=== PATIENT | male | born 1950 | race Caucasian/White ===

== ENCOUNTER 2020-10-22 17:49 | Inpatient (IN) | payer OTHER, MEDICAID, SELFPAY ==
[~2020-10-22] VITALS: Ht 177.8 cm; Wt 77.1 kg
[2020-10-22 17:49] VITALS: BP 100/24
[2020-10-22 19:06] LABS: BASOPHILS % (AUTO) 0.1 % (0.0-2.0); EOSINOPHILS % (AUTO) 0.1 % (0.0-4.0); HEMATOCRIT 30.6 % (36-52); LYMPHOCYTES # (AUTO) 0.3 K/uL (2.0-11.5); LYMPHOCYTES % (AUTO) 3.3 % (20.5-51.1); MEAN CORPUSCULAR HEMOGLOBIN 29 pg (27-31); MEAN CORPUSCULAR HGB CONC 33 g/dL (33-37); MEAN CORPUSCULAR VOLUME 90.1 fL (80-94); MONOCYTES # (AUTO) 0.3 K/uL (0.8-1.0); MONOCYTES % (AUTO) 2.8 % (1.7-9.3); NEUTROPHILS # (AUTO) 9.3 K/uL (1.8-7.7); NEUTROPHILS % (AUTO) 93.7 % (42.2-75.2); PLATELET COUNT (AUTO) 134 K/uL (140-450); RED CELL DISTRIBUTION WIDTH 15.8 % (11.6-13.7)
--- NOTE | 2020-10-22 19:16 | NUR ---
REPORT RECEIVED FROM MARY LAUREANO FOR CONTINUATION OF CARE.
[2020-10-22 19:30] LABS: FIBRINOGEN 339 mg/dL (200-400); PROTHROMBIN TIME 10.4 secs (10.8-13.4)
--- NOTE | 2020-10-22 19:30 | NUR ---
70 y/o male BIBA from Dialysis to ED c/o ALOC. Per daughter, pt became altered during dialysis but continued to finish dialysis anyways. Pt received x 2 hours of dialysis. Per EMS , pt was found Altered w/ oxygen levels in 80s. Pt placed on NRS 15LPM & IV established to Left Upper Chest. Pt A/O x 0 , unable to follow commands, GCS 11. RR Even and mildly labored. Lung sounds BL diminished. Dialysis shunt noted on left extremity. Pt resting in bed, locked and in lowest position, HOB elevated, side rail x 2 for pt safety. VSS. HX ESRD, DIALYSIS, HTN, RIGHT AKA , legally blind NKA
[2020-10-22 19:32] LABS: ALBUMIN 1.8 g/dL (3.4-5.0); ASPARTATE AMINOTRANSFERASE 39 U/L (15-37); CARBON DIOXIDE 33.9 mmol/L (21-32); CHLORIDE 95 mmol/L (98-107); CREATININE 3.4 mg/dL (0.6-1.3); GLUCOSE 147 mg/dL (74-106); SODIUM SERUM 136 mmol/L (136-145); TOTAL BILIRUBIN 1.8 mg/dL (0.0-1.0); UREA NITROGEN, BLOOD 31 mg/dL (7-18)
[2020-10-22 19:37] LABS: D-DIMER > 5000 ng/ml (0-400)
[2020-10-22 19:44] LABS: POTASSIUM 2.9 mmol/L (3.5-5.1)
--- NOTE | 2020-10-22 19:45 | NUR ---
Pt oxygen level 87% on Room Air, pt placed on 4L NC. ERMD made aware.
--- NOTE | 2020-10-22 19:45 | NUR ---
JUAN RAMON COVID , NOVEL COVID & FLU SWAB COLLECTED AND WALKED TO LAB.
--- NOTE | 2020-10-22 19:56 | NUR ---
PER DR. FLORES, STEPHANY TO TRY STRAIGHT CATH ON PT. # 14 FR Urinary catheter inserted utilizing sterile technique. Immediate return of 0.05 ml YELLOW urine noted. Urine sample collected and sent to lab. Pt tolerated procedure WELL. RADHA FLORES MADE AWARE THAT THERE WAS NOT ENOUGH URINE TO SEND FOR LAB SPECIMEN.
--- NOTE | 2020-10-22 20:05 | NUR ---
UPON ENTERING PT ROOM, OBSERVED EMESIS ON GROUND AND AUBILE GURGLING SOUNDS FROM PT. PT WAS IMMEDIATELY SUCTIONS, 100 CC RED LIQUID SUCTIONED FROM PT. RADHA FLORES MADE AWARE.
--- NOTE | 2020-10-22 20:06 | NUR ---
RADHA FLORES AT BEDSIDE FOR MEDICAL EVALUATION.
[2020-10-22 20:24] LABS: LACTATE DEHYDROGENASE 313 U/L (85-227)
[2020-10-22] MEDS ORDERED: DEXAMETHASONE 10 MG/ML VIAL IVP ONE (20:25)
[2020-10-22] MEDS ORDERED: AZITHROMYCIN 500 MG in DEXTROSE 5% 250 ML IV ONE (20:25)
[2020-10-22] MEDS ORDERED: ONDANSETRON 4 MG/2 ML VIAL IVP ONE (20:30)
[2020-10-22] MEDS ORDERED: KCL 20 MEQ/WATER INJ PREMIX 100 ML IV ONE (20:30)
[2020-10-22] MEDS ORDERED: cefTRIAXone 1,000 MG VIAL ONE (20:32)
[2020-10-22] MEDS ORDERED: AZITHROMYCIN 500 MG INJ VIAL IV ONE (20:32)
[2020-10-22 20:38] LABS: C-REACTIVE PROTEIN QUANT 33.9 mg/dL (0.0-0.9)
--- NOTE | 2020-10-22 22:30 | NUR ---
PT RESTING IN BED, LOCKED AND IN LOWEST POSITION ,HOB ELEVATED , SIDE RAIL X2. VSS. NO ACUTE DISTRESS.
[2020-10-22] MEDS ORDERED: MORPHINE SULFATE 2 MG/ML SYR IVP PRN (23:20)
[2020-10-22] MEDS ORDERED: ACETAMINOPHEN 325 MG TAB PO PRN (23:20)
[2020-10-22] MEDS ORDERED: HYDROcodone/APAP 5/325 MG 1 TAB TAB PO PRN (23:20)
[2020-10-22] MEDS ORDERED: LORazepam 2 MG/ML VIAL IVP PRN (23:20)
--- NOTE | 2020-10-23 | NUR ---
PT COUGHING UP SPUTUM, SUCTION PT FOR COMFORT. PT TOLERATED WELL. VSS. SAO2 94%.
--- NOTE | 2020-10-23 00:55 | NUR ---
PT RESTING IN BED, LOCKED AND IN LOWEST POSITION ,HOB ELEVATED, SIDE RAIL X2 . VSS. NO ACUTE DISTRESS. VISIBLE RISE AND FALL OF CHEST.
--- NOTE | 2020-10-23 04:15 | NUR ---
PT EYES CLOSED, VISIBLE RISE AND FALL OF CHEST. RR EVEN AND UNLABORED. VSS . NO ACUTE DISTRESS NOTED.
[2020-10-23] MEDS ORDERED: D50SYR IV (06:14)
[2020-10-23] MEDS ORDERED: PIOG15TA24 PO (06:14)
[2020-10-23] MEDS ORDERED: ACET-2619 PO (06:14)
[2020-10-23] MEDS ORDERED: MEGE40TA17 PO (06:14)
[2020-10-23] MEDS ORDERED: SEN30 PO (06:14)
[2020-10-23] MEDS ORDERED: CLON-527 TD (06:14)
[2020-10-23] MEDS ORDERED: CALC500C17 PO (06:14)
[2020-10-23] MEDS ORDERED: LORA10TA19 PO (06:14)
--- NOTE | 2020-10-23 06:42 | NUR ---
PT LAYING IN BED, LOCKED AND IN LOWEST POSITION, HOB ELEVATED, SIDE RAIL X 2 FOR PT SAFETY. SAO2 97% 4L NC. VSS. NO ACUTE DISTRESS.
--- NOTE | 2020-10-23 07:27 | NUR ---
Report provided to MARY Duncan for transfer of care.
--- NOTE | 2020-10-23 07:30 | NUR ---
RECIEVED REPORT FROM MARY ALVAREZ, TRANSFER OF CARE AT THIS TIME.
--- NOTE | 2020-10-23 08:00 | NUR ---
PT REFUSING BREAKFAST TRAY DUE TO NAUSEA. PRN ZOFRAN ADMIN. BED LOCKED AND IN LOWEST POSITION. SIDE RAILS X2. PSYCHOLOGISTS IN PLACE. CALL LIGHT IN REACH, ALL PT NEEDS MET AT THIS TIME.
[2020-10-23] MEDS: DEXAMETHASONE 4 MG/ML VIAL IVP SCH (09:00)
[2020-10-23] MEDS ORDERED: ENOXAPARIN 30 MG/0.3 ML SYR SUBQ SCH (09:00)
[2020-10-23] MEDS: ASPIRIN 81 MG TAB.CHEW PO SCH (09:20)
--- NOTE | 2020-10-23 09:30 | NUR ---
changed pts diaper, placed pt in pt gown, linens changed. bilingual trainer/pulse ox in place. bed locked and in lowest position. side rails x2.
--- NOTE | 2020-10-23 10:01 | NUR ---
PATIENT HAS BEEN SCREENED AND CATEGORIZED MODERATE NUTRITION RISK. PATIENT WILL BE SEEN WITHIN 3-5 DAYS OF ADMISSION. 10/25/20 10/27/[address]
[2020-10-23 10:17] LABS: BASOPHILS % (AUTO) 0.2 % (0.0-2.0); HEMATOCRIT 30.7 % (36-52); LYMPHOCYTES # (AUTO) 0.2 K/uL (2.0-11.5); LYMPHOCYTES % (AUTO) 2.1 % (20.5-51.1); MEAN CORPUSCULAR HEMOGLOBIN 30 pg (27-31); MEAN CORPUSCULAR HGB CONC 33 g/dL (33-37); MEAN CORPUSCULAR VOLUME 90.8 fL (80-94); MONOCYTES # (AUTO) 0.3 K/uL (0.8-1.0); MONOCYTES % (AUTO) 2.4 % (1.7-9.3); NEUTROPHILS # (AUTO) 10.1 K/uL (1.8-7.7); NEUTROPHILS % (AUTO) 95.3 % (42.2-75.2); PLATELET COUNT (AUTO) 127 K/uL (140-450); RED BLOOD CELL COUNT(AUTO) 3.39 MIL/uL (4.20-6.10); RED CELL DISTRIBUTION WIDTH 16.2 % (11.6-13.7)
[2020-10-23 10:21] LABS: WHITE BLOOD COUNT (AUTO) 10.6 K/uL (4.8-10.8)
[2020-10-23 10:34] LABS: ALBUMIN 1.8 g/dL (3.4-5.0); ANION GAP 15.6 (8-16); ASPARTATE AMINOTRANSFERASE 35 U/L (15-37); CHLORIDE 95 mmol/L (98-107); CREATININE 3.8 mg/dL (0.6-1.3); GLUCOSE 201 mg/dL (74-106); MAGNESIUM 2.5 mg/dL (1.8-2.4); POTASSIUM 4.6 mmol/L (3.5-5.1); SODIUM SERUM 135 mmol/L (136-145); TOTAL BILIRUBIN 1.4 mg/dL (0.0-1.0); UREA NITROGEN, BLOOD 43 mg/dL (7-18)
--- NOTE | 2020-10-23 10:38 | NUR ---
SOCIAL WORK NOTE: Patient's Orientation Unable To Assess Information Provided By SCOUT LOWE - DAUGHTER Comments SW WAS UNABLE TO MEET PATIENT AT BEDSIDE. SW COMPLETED ASSESSMENT WITH PATIENT'S DAUGHTER. Hotel Night Auditor, Realtionship and Phone Number SCOUT LOWE DAUGHTER [phone] WENDY [phone] Healthcare Power of Blood Splatter Analyst No Does Patient Have a POLST No Identifying Problems No Social Work Triggers Is A Social Work Consult Needed No Mandate Report Filed No Explanation Of Identifying Problems PATIENT IS A 70-YEAR-OLD MALE ADMITTED FOR COVID. PATIENT HAS PMHX OF RENAL DISEASE. Admitted From Home Pre-Admission Level Of Functioning Status Total Care Prior Resources/Services Used In Last 12 Months No Prior Resources Used Prior DME Hospital Bed Wheelchair Other DME: [facility] Hemodialysis Name And Phone Number of Dialysis Facility [facility] Out[facility] Outpatient Time 1000 Living Situation Lives With Family House Patient Had Caregiver No Home Support CG/Fam Able To Meet Need Financial Issues No Known Financial Issue Referral To The Financial Counselor Needed No Factors/Needs No D/C Needs Identified Pt/Rep Participated In Discharge Plan Yes Patient/Family Agress With Discharge Plan Yes Discharge Plan Comments TENTATIVE DISCHARGE PLAN IS FOR PATIENT TO RETURN HOME. DC Plan Status Initiated
--- NOTE | 2020-10-23 11:00 | NUR ---
PT RESTING IN BED. EQUAL CHEST RISE AND FALL. BED LOCKED AND IN LOWEST POSITION. CARDIAC MONIROR IN PLACE. ALL PT NEEDS MET AT THIS TIME.
--- NOTE | 2020-10-23 13:00 | NUR ---
PT REFUSING LUNCH TRAY.
--- NOTE | 2020-10-23 15:00 | NUR ---
pt asleep in bed. equal chest rise and fall. production supervisor off shift/pulse ox in place. bed locked and in lowest positon. side rails x2. call light in reach.
--- NOTE | 2020-10-23 18:00 | NUR ---
pt asleep in bed. equal chest rise and fall. environmental monitoring technician/pulse ox in place. bed locked and in lowest positon. side rails x2. call light in reach.
--- NOTE | 2020-10-23 19:15 | NUR ---
REPORT GIVEN TO MARY DUNCAN. TRANSFER OF CARE AT THIS TIME.
--- NOTE | 2020-10-23 19:15 | NUR ---
report recieved from jocelyn servin. transfer of care at this time.
--- NOTE | 2020-10-23 19:30 | NUR ---
pt is sleeping. equal rise and fall of chest wall. vss. all pt's needs met at this time. bed locked in lowest position, side rails x2.
[2020-10-23] MEDS ORDERED: AZITHROMYCIN 500 MG INJ VIAL IV ONE (20:33)
[2020-10-23] MEDS ORDERED: cefTRIAXone 1,000 MG VIAL ONE (20:34)
[2020-10-23] MEDS ORDERED: AZITHROMYCIN 500 MG in DEXTROSE 5% 250 ML IV SCH (21:00)
--- NOTE | 2020-10-23 21:15 | NUR ---
pt is resting in stable condition. vss. equal rise and fall of chest wall. all pt's needs met at this time. bed locked in lowest position, side rails x2. fluids cont, pt on 02 as ordered via nc.
--- NOTE | 2020-10-23 22:10 | NUR ---
PT'S DIAPER CHANGED.
--- NOTE | 2020-10-23 23:14 | NUR ---
pt is sleeping, equal rise and fall of chest wall. vss. pt's needs met at this time. bed locked in lowest position, side rails x2.
--- NOTE | 2020-10-24 00:40 | NUR ---
pt is sleeping, equal rise and fall of chest wall. vss. pt's needs met at this time. bed locked in lowest position, side rails x2.
--- NOTE | 2020-10-24 03:50 | NUR ---
pt is sleeping, equal rise and fall of chest wall. vss. pt's needs met at this time. bed locked in lowest position, side rails x2.
--- NOTE | 2020-10-24 05:00 | NUR ---
PT CHANGED AND REPOSITIONED. PT IN STABLE CONDITION, EQUAL RISE AND FALL OF CHEST WALL. BED LOCKED IN LOWEST POSITION. SIDE RAILS X2.
--- NOTE | 2020-10-24 06:45 | NUR ---
PT IS RESTING. EQUAL RISE AND FALL OF CHEST WALL. VSS. BED LOCKED IN LOWEST POSITION. SIDE RAILS X2.
--- NOTE | 2020-10-24 07:28 | NUR ---
REPORT GIVEN TO MARY BENOIT. TRANSFER OF CARE AT THIS TIME.
--- NOTE | 2020-10-24 07:48 | NUR ---
PT ALERT AND AWAKE, BREATHING UNLABORED AND EVEN ON 3L NC. WILL CONTINUE TO MONITOR.
[2020-10-24] MEDS: ASPIRIN 81 MG TAB.CHEW PO SCH (09:47)
[2020-10-24] MEDS: DEXAMETHASONE 4 MG/ML VIAL IVP SCH (09:47)
[2020-10-24 10:33] LABS: BASOPHILS % (AUTO) 0.1 % (0.0-2.0); HEMATOCRIT 25.9 % (36-52); HEMOGLOBIN 8.5 g/dL (12.0-18.0); LYMPHOCYTES # (AUTO) 0.3 K/uL (2.0-11.5); LYMPHOCYTES % (AUTO) 3.1 % (20.5-51.1); MEAN CORPUSCULAR HEMOGLOBIN 30 pg (27-31); MEAN CORPUSCULAR HGB CONC 33 g/dL (33-37); MEAN CORPUSCULAR VOLUME 90.3 fL (80-94); MONOCYTES # (AUTO) 0.5 K/uL (0.8-1.0); MONOCYTES % (AUTO) 4.3 % (1.7-9.3); NEUTROPHILS # (AUTO) 9.7 K/uL (1.8-7.7); NEUTROPHILS % (AUTO) 92.5 % (42.2-75.2); PLATELET COUNT (AUTO) 175 K/uL (140-450); RED BLOOD CELL COUNT(AUTO) 2.87 MIL/uL (4.20-6.10); RED CELL DISTRIBUTION WIDTH 15.6 % (11.6-13.7); WHITE BLOOD COUNT (AUTO) 10.5 K/uL (4.8-10.8)
[2020-10-24 10:44] LABS: CARBON DIOXIDE 28.9 mmol/L (21-32); CHLORIDE 95 mmol/L (98-107); GLUCOSE 265 mg/dL (74-106); POTASSIUM 3.9 mmol/L (3.5-5.1); SODIUM SERUM 135 mmol/L (136-145)
[2020-10-24 10:59] LABS: UREA NITROGEN, BLOOD 66 mg/dL (7-18)
--- NOTE | 2020-10-24 12:59 | NUR ---
DR BLANCO MADE AWARE PT STILL ALTERED, STILL ONLY RESPONDS SOMETIMES TO VERBAL, LETHARGIC.
--- NOTE | 2020-10-24 13:03 | NUR ---
PER LAB DOES NOT HAVE CONVALESCENT PLASMA YET
--- NOTE | 2020-10-24 13:20 | NUR ---
SPOKE TO DR YOUNG, STATES HE NEEDS DIALYSIS FOR THIS PATIENT TODAY, CHARGE NURSE SHAHRZAD MADE AWARE FOR PRIORITY FOR ADMIT FOR DIALYSIS
--- NOTE | 2020-10-24 16:29 | NUR ---
DIALYSIS NURSE AT BEDSIDE
--- NOTE | 2020-10-24 19:18 | NUR ---
REPORT GIVEN TO CATHY, TRANSFER OF CARE AT THIS TIME
--- NOTE | 2020-10-24 19:30 | NUR ---
RECEIVED REPORT FROM MARY BEST FOR CONTINUATION OF CARE.
--- NOTE | 2020-10-24 19:55 | NUR ---
CALLED APPLICATION TECHNICAL DESIGNER BRANDON TO BRING EPOETIN 5,000 UNITS.
--- NOTE | 2020-10-24 20:01 | NUR ---
PT IS SLEEPING WITH HOB IN SEMI-FOWLERS POSITION. VISIBLE RISE AND FALL OF CHEST NOTED. PT IS CONNECTED TO THE ADMISSIONS RN. SAO2@99%. PT IS NOT IN ANY VISIBLE DISTRESS AT THIS TIME. BED IS LOCKED AND IN LOWEST POSITION. SIDE RAILSX2 FOR PT PROTECTION AT THIS TIME DUE TO ALOC. WILL CONTINUE TO MONITOR.
[2020-10-24] MEDS ORDERED: EPOETIN ALFA 4,000 UNITS/ML VIAL ONE (20:24)
--- NOTE | 2020-10-24 20:40 | NUR ---
CALLED COURT USHER BRANDON IBARRA OF EPOETIN 5,000 UNITS. HE STATED THAT HE WILL BE HERE WITH IT SOON.
--- NOTE | 2020-10-24 20:55 | NUR ---
EPOEITIN 5000 UNITS RECEIVED AND ADMIN SUBQ.
[2020-10-24] MEDS: EPOETIN ALFA 2,000 UNITS/ML VIAL SUBQ SCH (21:11)
--- NOTE | 2020-10-24 22:00 | NUR ---
PT IS ASLEEP WITH HOB IN LOW-MCGRAW'S POSITION. VISIBLE RISE AND FALL OF CHEST NOTED. SAO2@97%. PT CONNECTED TO THE MILLER HEAD ASSISTANT WET PROCESS. NO VISIBLE DISTRESS NOTED. CALL LIGHT WITHIN REACH. WILL CONTINUE TO MONITOR.
--- NOTE | 2020-10-25 | NUR ---
PT IS ASLEEP WITH HOB IN LOW-MCGRAW'S POSITION. VISIBLE RISE AND FALL OF CHEST NOTED. SAO2@97%. PT CONNECTED TO THE INSURANCE PREMIUM AUDITOR. NO VISIBLE DISTRESS NOTED. CALL LIGHT WITHIN REACH. WILL CONTINUE TO MONITOR.
--- NOTE | 2020-10-25 01:00 | NUR ---
PT NAUSEOUS, +VOMITING. EMESIS BAG PROVIDED. PT STATED "I AM NAUSEOUS". ORAL CARE PROVIDED. REPOSITIONED FOR COMFORT. HOB ELEVATED TO SEMI-MCGRAW'S POSITION. OXYGEN INCREASED TO 4L NC, SAO2@96%. PT CONNECTED TO THE SMALL ENGINE TECHNICIAN. LIGHTS TURNED OFF. CALL LIGHT WITHIN REACH. WILL CONTINUE TO MONITOR.
--- NOTE | 2020-10-25 05:20 | NUR ---
MRSA SWAB COLLECTED AND WALKED OVER TO LAB.
--- NOTE | 2020-10-25 07:26 | NUR ---
REPORT GIVEN TO MARY LAUREANO FOR TRANSFER OF CARE AT THIS TIME.
--- NOTE | 2020-10-25 07:27 | NUR ---
RECEIVED REPORT FROM 7 PM RN, 70 YEARS OLD MALE WITH ALOC ON HD NO ACUTE CHANGES WILL CONTINUE TO MONITOR.
--- NOTE | 2020-10-25 08:05 | NUR ---
patient stable for transfer to unit Tele Room 118.
--- NOTE | 2020-10-25 08:25 | NUR ---
RECEIVED PATIENT FROM ER NURSE. PATIENT IS AOX2. LUNG SOUNDS CLEAR. RESPIRATIONS EVEN AND UNLABORED. ON 2 L NC SATING AT 94%. S1 AND S2 HEARD. SKIN IS INTACT WITH RIGHT BKA. IV SITE ON RAC 22G SALINE LOCK. INTACT AND PATENT. BOWEL SOUNDS ACTIVE IN ALL QUADRANTS. ABDOMEN IS FLAT, SOFT, AND NON-DISTENDED. PLAN OF CARE WAS DISCUSSED. SAFETY PRECAUTIONS IN PLACE. BED IN LOW POSITION AND CALL LIGHT WITHIN REACH. WILL CONTINUE TO MONITOR.
[2020-10-25 09:00] LABS: HEMOGLOBIN 8.8 g/dL (12.0-18.0); MEAN CORPUSCULAR HEMOGLOBIN 31 pg (27-31); MEAN CORPUSCULAR HGB CONC 33 g/dL (33-37); PLATELET COUNT (AUTO) 202 K/uL (140-450); RED BLOOD CELL COUNT(AUTO) 2.81 MIL/uL (4.20-6.10); RED CELL DISTRIBUTION WIDTH 16.2 % (11.6-13.7); WHITE BLOOD COUNT (AUTO) 9.3 K/uL (4.8-10.8)
[2020-10-25] MEDS ORDERED: INSULIN LANTUS 100 UNITS/ML 10 ML VIAL SUBQ SCH (09:00)
[2020-10-25 09:08] LABS: ANION GAP 15.4 (8-16); CARBON DIOXIDE 26.4 mmol/L (21-32); CHLORIDE 98 mmol/L (98-107); CREATININE 3.8 mg/dL (0.6-1.3); GLUCOSE 250 mg/dL (74-106); POTASSIUM 3.8 mmol/L (3.5-5.1); SODIUM SERUM 136 mmol/L (136-145); UREA NITROGEN, BLOOD 51 mg/dL (7-18)
[2020-10-25] MEDS: ASPIRIN 81 MG TAB.CHEW PO SCH (09:11)
[2020-10-25] MEDS: DEXAMETHASONE 4 MG/ML VIAL IVP SCH (09:11)
[2020-10-25 09:50] LABS: LYMPHOCYTES % (MANUAL) 5 % (20-46); MONOCYTES % (MANUAL) 5 % (5-12)
--- NOTE | 2020-10-25 10:10 | NUR ---
ALL SCHEDULED MEDS GIVEN. PT IS STABLE. NO S/S OF RESPIRATORY DISTRESS NOTED. WILL CONTINUE TO MONITOR.
--- NOTE | 2020-10-25 14:30 | NUR ---
OBTAINED SIGNATURE FOR PLASMA CONSENT
[2020-10-25 16:00] VITALS: BP 121/85
--- NOTE | 2020-10-25 16:01 | NUR ---
SPOKE TO PATIENTS DAUGHTER ABOUT PLASMA TREATMENT. DAUGHTER AGREED WITH TREATMENT AND GAVE CONSENT THROUGH THE TELEPHONE.
--- NOTE | 2020-10-25 17:52 | NUR ---
CHECKED ON PATIENT. PATIENT IS STABLE. RESPIRATIONS EVEN AND UNLABORED. NO DISTRESS NOTED. WILL CONTINUE TO MONITOR.
--- NOTE | 2020-10-25 19:23 | NUR ---
ENDORSED TO HEAD OF INTEGRATED MEDIA NURSE FOR CONTINUITY OF CARE.
--- NOTE | 2020-10-25 19:40 | NUR ---
RECIVED REPORT OF PT IN STABLE CONDITION.RESP.UNLABORED W/O2 AT 2L/NC.SL PATENT.CALL LIGHT IN REACH.NO DISTRESS NOTED NOW.WILL CONT.MONITORING.
[2020-10-26 04:00] VITALS: BP 107/62
--- NOTE | 2020-10-26 07:09 | NUR ---
SLEPT WELL. NO RESP.DISTRESS NOTED AT THIS TIME.WILL ENDORSE TO AM RN.
[2020-10-26 08:00] VITALS: BP 114/65
[2020-10-26] MEDS ORDERED: INSULIN LISPRO SLIDING SCALE 100 UNITS/ML VIAL SUBQ PRN (08:15)
[2020-10-26] MEDS ORDERED: DEXTROSE 50% 50 ML SYR IVP PRN (08:15)
[2020-10-26] MEDS: INSULIN LANTUS 100 UNITS/ML 10 ML VIAL SUBQ SCH (09:00)
[2020-10-26] MEDS: EPOETIN ALFA 2,000 UNITS/ML VIAL SUBQ SCH (09:00)
[2020-10-26] MEDS ORDERED: cloNIDine-TTS1 0.1 MG/24 HR 1 EA PATCH TD SCH (09:00)
[2020-10-26] MEDS ORDERED: CLONIDINE HYDROCHLORIDE 0.1 MG TAB PO ONE (09:00)
[2020-10-26 10:08] LABS: BASOPHILS % (AUTO) 0.2 % (0.0-2.0); HEMATOCRIT 27.9 % (36-52); HEMOGLOBIN 9.2 g/dL (12.0-18.0); LYMPHOCYTES # (AUTO) 0.3 K/uL (2.0-11.5); MEAN CORPUSCULAR HEMOGLOBIN 31 pg (27-31); MEAN CORPUSCULAR HGB CONC 33 g/dL (33-37); MEAN CORPUSCULAR VOLUME 94.9 fL (80-94); MONOCYTES # (AUTO) 0.5 K/uL (0.8-1.0); MONOCYTES % (AUTO) 6.3 % (1.7-9.3); NEUTROPHILS # (AUTO) 6.4 K/uL (1.8-7.7); NEUTROPHILS % (AUTO) 89.5 % (42.2-75.2); PLATELET COUNT (AUTO) 235 K/uL (140-450); RED BLOOD CELL COUNT(AUTO) 2.94 MIL/uL (4.20-6.10); RED CELL DISTRIBUTION WIDTH 15.8 % (11.6-13.7); WHITE BLOOD COUNT (AUTO) 7.1 K/uL (4.8-10.8)
[2020-10-26] MEDS: ASPIRIN 81 MG TAB.CHEW PO SCH (10:28)
[2020-10-26] MEDS: CINACALCET 30 MG TAB PO SCH (10:28)
[2020-10-26] MEDS: DEXAMETHASONE 4 MG/ML VIAL IVP SCH (10:28)
[2020-10-26] MEDS: LORATADINE 10 MG TAB PO SCH (10:28)
[2020-10-26] MEDS: CALCIUM CARBONATE 500 MG TAB.CHEW PO SCH (10:28)
--- NOTE | 2020-10-26 10:37 | NUR ---
SCHEDULED MEDICATIONS DUE GIVEN. WILL CONTINUE TO MONITOR.
[2020-10-26 10:46] LABS: CARBON DIOXIDE 26.1 mmol/L (21-32); CHLORIDE 100 mmol/L (98-107); GLUCOSE 228 mg/dL (74-106); POTASSIUM 4.1 mmol/L (3.5-5.1); SODIUM SERUM 137 mmol/L (136-145)
[2020-10-26 10:49] LABS: CREATININE 4.8 mg/dL (0.6-1.3); UREA NITROGEN, BLOOD 69 mg/dL (7-18)
[2020-10-26] MEDS ORDERED: INTUBATION KIT MC ONE (11:04)
[2020-10-26] MEDS ORDERED: ALBUMIN HUMAN 25% 100 ML IV ONE (11:28)
[2020-10-26] MEDS: BLOOD GLUCOSE MONITORING 1 DEV DEV FS SCH ×3 (11:30→20:00)
--- NOTE | 2020-10-26 11:42 | NUR ---
PER HD NURSE, PATIENT BP DROPPED TO 70'S WHEN TRYING TO REMOVE BLOOD. ALBUMIN GIVEN 100 ML BY HD NURSE AND HD NURSE RETURNED BLOOD. PATIENT'S BP BACK TO 120'S AFTER HD NURSE RETURNED BLOOD FROM HD. WILL NOTIFY DR. YOUNG. WILL CONTINUE TO MONITOR.
[2020-10-26] MEDS ORDERED: ALBUMIN HUMAN 25% 100 ML IV SCH (12:00)
--- NOTE | 2020-10-26 13:46 | NUR ---
SCHEDULED MEDICATIONS DUE GIVEN. WILL CONTINUE TO MONITOR.
[2020-10-26 16:00] VITALS: BP 124/63
--- NOTE | 2020-10-26 17:10 | NUR ---
PATIENT LYING DOWN IN BED SLEEPING, AROUSABLE BY VOICE. NO DISTRESS NOTED. WILL CONTINUE TO MONITOR .
--- NOTE | 2020-10-26 19:19 | NUR ---
GAVE REPORT TO AERONAUTICAL DESIGN ENGINEER NURSE FOR CONTINUITY OF CARE. PATIENT IN STABLE CONDITION.
--- NOTE | 2020-10-26 19:30 | NUR ---
RECEIVED REPORT.PT'S CONDITION STABLE.NO DISTRESS NOTED NOW.RESP.UNLABORED..SL PATENT.LUNGS DIMINISHED.WILL CONT.MONITORING.
[2020-10-26 20:00] VITALS: BP 117/63
--- NOTE | 2020-10-27 | NUR ---
MADE ROUNDS , NO S/SX OF ACUTE DISTRESS NOTED . O2 SAT WNL .
[2020-10-27 04:00] VITALS: BP 112/63
[2020-10-27] MEDS: BLOOD GLUCOSE MONITORING 1 DEV DEV FS SCH ×4 (04:30→23:00)
[2020-10-27 08:36] LABS: BASOPHILS % (AUTO) 0.1 % (0.0-2.0); HEMATOCRIT 24.4 % (36-52); HEMOGLOBIN 8.1 g/dL (12.0-18.0); LYMPHOCYTES # (AUTO) 0.3 K/uL (2.0-11.5); LYMPHOCYTES % (AUTO) 5.4 % (20.5-51.1); MEAN CORPUSCULAR HEMOGLOBIN 35 pg (27-31); MEAN CORPUSCULAR HGB CONC 33 g/dL (33-37); MEAN CORPUSCULAR VOLUME 104.6 fL (80-94); MONOCYTES # (AUTO) 0.4 K/uL (0.8-1.0); MONOCYTES % (AUTO) 6.7 % (1.7-9.3); NEUTROPHILS % (AUTO) 87.8 % (42.2-75.2); PLATELET COUNT (AUTO) 190 K/uL (140-450); RED BLOOD CELL COUNT(AUTO) 2.34 MIL/uL (4.20-6.10); WHITE BLOOD COUNT (AUTO) 5.7 K/uL (4.8-10.8)
[2020-10-27 08:48] LABS: ANION GAP 13.1 (8-16); CARBON DIOXIDE 27.6 mmol/L (21-32); CHLORIDE 100 mmol/L (98-107); GLUCOSE 146 mg/dL (74-106); POTASSIUM 3.7 mmol/L (3.5-5.1); SODIUM SERUM 137 mmol/L (136-145)
[2020-10-27] MEDS: CALCIUM CARBONATE 500 MG TAB.CHEW PO SCH (09:55)
[2020-10-27] MEDS: ASPIRIN 81 MG TAB.CHEW PO SCH (09:55)
[2020-10-27] MEDS: CINACALCET 30 MG TAB PO SCH (09:55)
[2020-10-27] MEDS: LORATADINE 10 MG TAB PO SCH (09:55)
[2020-10-27] MEDS: DEXAMETHASONE 4 MG/ML VIAL IVP SCH (09:56)
[2020-10-27] MEDS: INSULIN LANTUS 100 UNITS/ML 10 ML VIAL SUBQ SCH (09:58)
--- NOTE | 2020-10-27 09:59 | NUR ---
SCHEDULED MEDICATIONS GIVEN. PATIENT TOLERATED WELL. HOB ELEVATED >30 DEGREE. RESPIRATORY EVEN AND UNLABORED. O2 SAT 96% WITH 2L NC. SAFETY MEASURES IN PLACE, WILL CONTINUE TO MONITOR.
--- NOTE | 2020-10-27 11:59 | NUR ---
ACCUCHECK DONE. BLOOD GLUCOSE LEVEL 151, HOLD HUMALOG SINCE PATIENT HAS POOR ORAL INTAKE. NO BREAKFAST TAKEN. PATIENT RESTING COMFORTABLY IN BED, NO ACUTE DISTRESS NOTED. WILL CONTINUE TO MONITOR.
[2020-10-27 12:23] LABS: CREATININE 5.1 mg/dL (0.6-1.3); UREA NITROGEN, BLOOD 71 mg/dL (7-18)
--- NOTE | 2020-10-27 14:20 | NUR ---
PATIENT ASLEEP IN RIGHT LATERAL POSITION WITH 2L NC. VISIBLE CHEST RISE AND FALL, NO ACUTE DISTRESS NOTED, WILL CONTINUE TO MONITOR.
[2020-10-27 16:00] VITALS: BP 99/52
--- NOTE | 2020-10-27 21:35 | NUR ---
10/27/2020 RD INITIAL ASSESSMENT COMPLETED PLEASE REFER TO NUTRITION ASSESSMENT UNDER CARE ACTIVITY FOR ESTIMATED NUTRITIONAL NEEDS. CONTINUE CURRENT DIET ORDREED, CONSIDER ADDING RENAL DIET IF PO INTAKE INCREASES TO >75% RD TO FOLLOW-UP IN 3-5 DAYS PATIENT IS MODERATE RISK. CIPRIANO BERNSTEIN, RD
[2020-10-28] VITALS: BP 117/63
--- NOTE | 2020-10-28 02:00 | NUR ---
SLEEPING . CHEST RISE AND FALL EQUALLY .
--- NOTE | 2020-10-28 04:00 | NUR ---
O2 SAT WMNL . NO S/SX OF ACUTE DISTRESS NOTED .
--- NOTE | 2020-10-28 06:00 | NUR ---
RESTING COMFORTABLY ON BED - ON 02 AT 2LPM/NC . NO COMPLAIN MADE - FOR HD TODAY ORDERED BY DR. HEMANTH YOUNG - WILL INFORM HD NURSE .
[2020-10-28] MEDS: BLOOD GLUCOSE MONITORING 1 DEV DEV FS SCH ×4 (06:13→21:10)
--- NOTE | 2020-10-28 07:24 | NUR ---
LEFT TEL. MSG TO NIDA WALSH - FOR HD TODAY .
--- NOTE | 2020-10-28 07:36 | NUR ---
ENDORSED - PT -STABLE .
--- NOTE | 2020-10-28 07:40 | NUR ---
RECEIVED PATIENT FROM RESEARCH TECHNICIAN NURSE. PATIENT IS AOX1. LUNG SOUNDS CLEAR. RESPIRATIONS EVEN AND UNLABORED. ON 2 L NC SATING AT 94%. SKIN IS INTACT WITH RIGHT BKA. IV SITE ON RAC 22G SALINE LOCK. INTACT AND PATENT. PLAN OF CARE WAS DISCUSSED. SAFETY PRECAUTIONS IN PLACE. BED IN LOW POSITION AND CALL LIGHT WITHIN REACH. WILL CONTINUE TO MONITOR.
[2020-10-28 08:00] VITALS: BP 95/46
--- NOTE | 2020-10-28 08:33 | NUR ---
DISCHARGE PLANNING: CONTACTED [facility]Y GORECARMINA AT [phone], NO ANSWER. LEFT MESSAGE. WILL FOLLOW UP. Addendum: 10/28/20 at 0905 by Rose Marie Fernandez CM FOR PT EVALUATION TODAY. Addendum: 10/28/20 at 0918 by Rose Marie Fernandez CM CONTACTED FUNMI PAISLEY ABBY [phone], ABLE TO SPEAK TO ISAMAR. SHE STATED THE NAME IS NOT FAMILIAR AND TRY TO CALL [facility]Y [facility] IN [facility] AT [phone]. CONTACTED THE PROVIDED NUMBER, ABLE TO SPEAK TO PERRY. INFORMED HIM THAT PATIENT IS COVID POSITIVE. PER PERRY, PATIENT NEEDS TO GO TO THEIR COHORT FACILITY. HE STATED NORMALLY FOR THEIR CHRONIC DIALYSIS PATIENTS ONCE POSITIVE THEY GO HOME AND SOMEONE WILL BE CALLING THEM FOR THEM TO GO TO A DIFFERENT FACILITY. HE ALSO STATED THAT THEY DO NOT HAVE A ACADEMIC GUIDANCE SPECIALIST TODAY TO PROCESS THE REQUEST. CHARGE NURSE MADE AWARE. Addendum: 10/28/20 at 1121 by Rose Marie Fernandez SENT A PAGE TO DR. PEDRO MAURICE. DR. MAURICE CALLED BACK AND MADE AWARE THAT THERE IS NO ACADEMIC GUIDANCE SPECIALIST TO PROCESS THE REQUEST FOR A COHORT FACILITY. SHE STATED THAT THEY ARE HAVING A HARD TIME PLACING COVID POSITIVE PATIENTS AT THIS TIME. INFORMED HER THAT I WILL CALL [facility] DIRECTLY AND FIND OUT. CONTACTED [facility] AT [phone], ABLE TO SPEAK TO JEN. PER JEN THEY HAVE 13 PATIENT'S ON WAIT LIST AT THIS TIME. HOWEVER, THERE ARE SOME PATIENTS THAT EITHER CANCELS CHAIR TIME OR IN AND OUT OF THE HOSPITAL. HE STATED TO FOLLOW UP WITH THEM ON FRIDAY.
--- NOTE | 2020-10-28 09:30 | NUR ---
PATIENT BEGAN HEMODIALYSIS
[2020-10-28 09:46] LABS: BASOPHILS % (AUTO) 0.2 % (0.0-2.0); HEMATOCRIT 25.1 % (36-52); HEMOGLOBIN 8.4 g/dL (12.0-18.0); LYMPHOCYTES # (AUTO) 0.4 K/uL (2.0-11.5); LYMPHOCYTES % (AUTO) 4.6 % (20.5-51.1); MEAN CORPUSCULAR HEMOGLOBIN 34 pg (27-31); MEAN CORPUSCULAR HGB CONC 33 g/dL (33-37); MEAN CORPUSCULAR VOLUME 101.4 fL (80-94); MONOCYTES # (AUTO) 0.5 K/uL (0.8-1.0); MONOCYTES % (AUTO) 5.1 % (1.7-9.3); NEUTROPHILS # (AUTO) 8.5 K/uL (1.8-7.7); NEUTROPHILS % (AUTO) 90.1 % (42.2-75.2); PLATELET COUNT (AUTO) 219 K/uL (140-450); RED BLOOD CELL COUNT(AUTO) 2.47 MIL/uL (4.20-6.10); RED CELL DISTRIBUTION WIDTH 16.6 % (11.6-13.7); WHITE BLOOD COUNT (AUTO) 9.4 K/uL (4.8-10.8)
[2020-10-28] MEDS ORDERED: ALBUMIN HUMAN 25% 100 ML IV SCH (09:51)
[2020-10-28] MEDS: INSULIN LANTUS 100 UNITS/ML 10 ML VIAL SUBQ SCH (10:30)
[2020-10-28 10:36] LABS: ANION GAP 19.3 (8-16); CARBON DIOXIDE 23.6 mmol/L (21-32); CHLORIDE 103 mmol/L (98-107); GLUCOSE 132 mg/dL (74-106); POTASSIUM 3.9 mmol/L (3.5-5.1); SODIUM SERUM 142 mmol/L (136-145)
[2020-10-28 10:39] LABS: CREATININE 5.9 mg/dL (0.6-1.3); UREA NITROGEN, BLOOD 88 mg/dL (7-18)
--- NOTE | 2020-10-28 12:00 | NUR ---
HEMODIALYSIS FINISHED. DIALYSIS NURSE SAID THAT SHE PUT 900+ FLUIDS BACK DUE TO BLOOD PRESSURE BEING LOW THE WHOLE [id number]. ALBUMIN DID NOT HELP. NO RECORDED OUTPUT.
[2020-10-28] MEDS: CINACALCET 30 MG TAB PO SCH (12:19)
[2020-10-28] MEDS: CALCIUM CARBONATE 500 MG TAB.CHEW PO SCH (12:19)
[2020-10-28] MEDS: ASPIRIN 81 MG TAB.CHEW PO SCH (12:20)
[2020-10-28] MEDS: LORATADINE 10 MG TAB PO SCH (12:20)
--- NOTE | 2020-10-28 12:20 | NUR ---
ALL SCHEDULED MEDS GIVEN. PT IS STABLE. NO DISTRESS NOTED.
[2020-10-28] MEDS: EPOETIN ALFA 2,000 UNITS/ML VIAL SUBQ SCH (12:21)
[2020-10-28] MEDS: DEXAMETHASONE 4 MG/ML VIAL IVP SCH (12:33)
[2020-10-28 16:00] VITALS: BP 142/75
--- NOTE | 2020-10-28 16:45 | NUR ---
BLOOD SUGAR CHECK IS 136. NO INSULIN COVERAGE NEEDED. PT IS STABLE.
--- NOTE | 2020-10-28 17:21 | NUR ---
P.T. NOTES P.T. EVAL COMPLETED; REFER TO EVAL FOR DETAILS; HAD HD THIS AM; O2 SAT ROOM AIR=85%, 3L=95%
--- NOTE | 2020-10-28 19:30 | NUR ---
ENDORSED TO ANIMAL SKINNER NURSE FOR CONTINUITY OF CARE.
--- NOTE | 2020-10-28 19:30 | NUR ---
[facility], PT IN STABLE CONDITION.
[2020-10-28 20:00] VITALS: BP 134/84
--- NOTE | 2020-10-28 20:00 | NUR ---
PT IS AOX1 SITTING UP IN BED ON 2 LITERS N/C. PT HAS A RAC IV SITE AND A LEFT 20G SUBCLAVIAN IV SITE, BOTH OF WHICH ARE SALINE LOCKED. PT FINGERSTICK IS 146, NO HUMALOG COVERAGE NEEDED. PT DECLINED HIS DINNER DSAYING HE FELT NAUSEA. PT WAS REPOSITIONED IN BED. V/S FOLLOWS: T 98.2 P 119 R 19 B/P 134/84 02 97% WITH 3 LITERS N/C. WILL GIVEN PRN FOR NAUSEA WITH PM MED PASS. ALL FALLS PRECAUTIONS IN PLACE.
[2020-10-28] MEDS: ONDANSETRON 4 MG/2 ML VIAL IVP PRN (21:10)
--- NOTE | 2020-10-28 21:10 | NUR ---
PT GIVEN ORDERED HEPARIN. MEDICATION ADMINISTERED ORDERED. PT GIVEN IVP/PRN ZOFRAN FOR NAUSEA, WILL CONTINUE TO MONITOR.
[2020-10-29 04:00] VITALS: BP 94/40
--- NOTE | 2020-10-29 04:00 | NUR ---
PT RESTING IN BED V/S FOLLOWS: T 97.0 P 110 R 20 B/P 94/40 02 100% ON 2 LITERS. ALL PRECAUTIONS ORDERED IN PLACE.
--- NOTE | 2020-10-29 06:00 | NUR ---
PT FINGERSTICK IS 150, NO COVERAGE NEEDED. PT GIVEN IVP ZOFRAN FOR C/O OF NAUSEA.
[2020-10-29] MEDS: BLOOD GLUCOSE MONITORING 1 DEV DEV FS SCH (06:43)
[2020-10-29] MEDS: ONDANSETRON 4 MG/2 ML VIAL IVP PRN (06:43)
--- NOTE | 2020-10-29 08:00 | NUR ---
REPORT GIVEN BY THE SKINNING MACHINE FEEDER FOR CONTINUITY OF CARE.
--- NOTE | 2020-10-29 08:58 | NUR ---
PATIENT SEEN BY ALEJANDRO VERDE TO TAKE VITAL SIGNS, PATIENT IS NOT RESPONDING, CALLED SHAI REZA. SHAI REZA TEAM CAME.
[2020-10-29] MEDS: DEXAMETHASONE 4 MG/ML VIAL IVP SCH (09:00)
[2020-10-29] MEDS: INSULIN LANTUS 100 UNITS/ML 10 ML VIAL SUBQ SCH (09:00)
[2020-10-29] MEDS: LORATADINE 10 MG TAB PO SCH (09:00)
[2020-10-29] MEDS: CINACALCET 30 MG TAB PO SCH (09:00)
[2020-10-29] MEDS: CALCIUM CARBONATE 500 MG TAB.CHEW PO SCH (09:00)
[2020-10-29] MEDS: ASPIRIN 81 MG TAB.CHEW PO SCH (09:00)
--- NOTE | 2020-10-29 09:12 | NUR ---
I CALLED THE DAUGHTER SCOUT REGARDING THE STATUS OF THE PATIENT AND MADE AWARE. CALLED DR. ORDAZ ALSO AND MADE AWARE.
--- NOTE | 2020-10-29 09:15 | NUR ---
PATIENT . AND NOTIFIED THE FAMILY.
--- NOTE | 2020-10-29 10:30 | NUR ---
CALLED [employer] [facility] [employer]. [facility] RELEASED THE BODY.
--- NOTE | 2020-10-29 12:00 | NUR ---
POST MORTEM DONE. PATIENT BODY SENT TO THE [facility]. NOTIFIED FAMILY THAT NEED TO ARRANGE THE MORTUARY. THE DAUGHTER SHWETA SAID SHE WILL CALL HERE ONCE THEY FIND ONE.
== END 2020-10-29 09:15 | DRG 177 ==
LOC: MED 17:49 → MMU 23:27 → MTU 10-25 07:51 → MMU 10-25 08:16
PROVIDERS: ADMIT Hospitalist; ATTEND Hospitalist
PROC: 5A1D70Z Performance of Urinary Filtration, Intermittent, Less than 6 Hours Per Day (ICD-10-PCS; 2020-10-24)
PROC: 5A1D70Z Performance of Urinary Filtration, Intermittent, Less than 6 Hours Per Day (ICD-10-PCS; 2020-10-26)
PROC: 5A1D70Z Performance of Urinary Filtration, Intermittent, Less than 6 Hours Per Day (ICD-10-PCS; 2020-10-27)
PROC: 5A12012 Performance of Cardiac Output, Single, Manual (ICD-10-PCS; principal; 2020-10-29)
DX: U07.1 COVID-19 (principal); J96.01 Acute respiratory failure with hypoxia; N18.6 End stage renal disease; J12.82 Pneumonia due to coronavirus disease 2019; I12.0 Hypertensive chronic kidney disease with stage 5 chronic kidney disease or end stage renal disease; D68.69 Other thrombophilia; E11.22 Type 2 diabetes mellitus with diabetic chronic kidney disease; H54.8 Legal blindness, as defined in USA; E87.6 Hypokalemia; I44.7 Left bundle-branch block, unspecified; E11.51 Type 2 diabetes mellitus with diabetic peripheral angiopathy without gangrene; D64.9 Anemia, unspecified; I46.9 Cardiac arrest, cause unspecified; Z99.2 Dependence on renal dialysis; Z79.899 Other long term (current) drug therapy; Z79.84 Long term (current) use of oral hypoglycemic drugs
CPT/HCPCS: 36415; 71045; 80048; 80053; 82550; 82728; 82948; 83615; 83735; 83880; 84484; 85025; 85379; 85384; 85610; 85730; 86140; 86900; 86901; 87040; 87081; 87804; 90935; 93005; 96365; 96366; 96368; 96375; 97112; 97161-GP; 99291; J0456; J0696; J0885; J1100; J1644; J1650; J1815; J2405; J3480; J7030; J7060; P9046; U0003